=== PATIENT | male | born 1980 | race Caucasian/White ===

== ENCOUNTER 2024-07-07 10:54 | Emergency (ER) | payer MEDICAID, SELFPAY ==
[2024-07-07 11:10] VITALS: BP 113/73; PULSE 56; RESP 18; TEMP 36.4; O2SAT 95
--- NOTE | 2024-07-07 11:15 | XR_ITS ---
Examination: CT brain head without contrast. 2-D sagittal coronal reconstructions Date and time of exam:July 07, 2024 1229 hours INDICATIONS: Patient fell today with injury to the head, head pain facial bruising CTDI: vol (mGy):55.5 DLP: (mGycm):1122 Technique: Multiple CT axial sections of the brain have been obtained, 5 mm slice thickness. Contrast has not been administered. 2-D sagittal, coronal reconstructions have been obtained Low dose protocols were performed. One or more of the following dose reduction techniques were used; automated exposure control, adjustment of the mA and/or KV according to patient size, use of iterative reconstruction technique. Findings: No significant ventricular enlargement. Intra-axial or extra-axial hemorrhage density is not seen. No mass effect or midline shift Basal cisterns are not remarkable. Fourth ventricle is midline. Cranial vault intact. Impression: Negative for acute hemorrhage, mass effect or midline shift
--- NOTE | 2024-07-07 11:15 | XR_ITS ---
Examination: CTA chest with intravenous contrast 2-D reconstructions 3-D reconstructions, vascular Date and time of exam: July 07, 2024 1254 hours INDICATIONS: Patient fell today with into the chest, chest pain CTDI: vol (mGy) 15.2 DLP: (mGycm) 575 Technique: Multiple axial sections of the thorax have been obtained. 3 mm slice thickness, from below the hemidiaphragms to above the apices of the lungs. Mediastinal and lung density settings have been obtained. 2-D sagittal and coronal reconstructions. 3-D angiographic renderings, 3-D volume renderings, 3D post processing, vascular maximum intensity projections obtained. Contrast administered is 100 cc Isovue-370 intravenous. Low dose protocols were performed. One or more of the following dose reduction techniques were used; automated exposure control, adjustment of the mA and/or KV according to patient size, use of iterative reconstruction technique. Findings: Thoracic aorta pulmonary arteries intact No pulmonary artery emboli Mild hilar lymphadenopathy No hemopericardium 8mm plantar to the right upper lobe No pneumothorax pulmonary contusion or hemothorax The manubrium, the body of the sternum, thoracic vertebral body intact Ribs appear intact IMPRESSION: Thoracic aorta pulmonary arteries appear intact No hemopericardium, pneumothorax, pulmonary contusion or hemothorax Osseous structures appear intact
--- NOTE | 2024-07-07 11:15 | XR_ITS ---
Examination: CT abdomen with intravenous contrast CT pelvis with intravenous contrast 2-D coronal reconstructions 2-D sagittal reconstructions Date and time of exam:July 07, 2024 at 1247 hours INDICATIONS: Patient fell today with into the abdomen, abdomen and pelvic pain. CTDI: vol (mGy) 15.1 DLP: (mGycm) 1074 Technique: Multiple axial sections of the abdomen and pelvis have been obtained. 64 slice high-resolution scanner used. 3 mm axial sections have been obtained, post intravenous injection 100 cc Isovue-370 2-D sagittal, coronal reconstructions obtained. Low dose protocols were performed. One or more of the following dose reduction techniques were used; automated exposure control, adjustment of the mA and/or KV according to patient size, use of iterative reconstruction technique. Findings: No liver splenic or renal laceration, no perinephric hematoma No gallstones No pancreatic or adrenal mass Abdominal aorta intact No free blood in the abdomen Negative for pneumoperitoneum Normal appendix Scattered colonic diverticulosis Urinary bladder intact No prostatomegaly Hips bones of the pelvis sacral segments lumbar vertebral bodies appear intact IMPRESSION: No abdominal parenchymal laceration Abdominal aorta intact No free blood in the abdomen or pelvis
--- NOTE | 2024-07-07 11:15 | XR_ITS ---
Examination: CT lumbar spine, without contrast. 2-D sagittal reconstructions. 2-D coronal reconstructions. 3-D reconstructions. Date and time of exam:July 07, 2024 1224 hours INDICATIONS: Patient fell today with injury to the lower back, lower back pain CTDI: vol (mGy):47.2 DLP: (mGycm):1647 Technique: Multiple 1.25 mm axial sections of the lumbar spine without intravenous contrast have been obtained. 2-D sagittal and coronal reconstructions have been obtained. 3-D reconstructions have been obtained. Low dose protocols were performed. One or more of the following dose reduction techniques were used; automated exposure control, adjustment of the mA and/or KV according to patient size, use of iterative reconstruction technique. Findings: Adequate alignment lumbar vertebral bodies on the lateral view No lumbar vertebral body compression fracture No spondylolisthesis Mild disc narrowing posteriorly L5-S1 Lumbar pedicles, laminae, transverse and posterior spinous processes are intact Sacral segments appear intact L5-S1 3 mm central lumbar disc bulge L4-L5 3 mm left paracentral subarticular disc bulge L3-L4 no disc protrusion L2-L3 no disc protrusion L1-2 no disc protrusion IMPRESSION: No acute lumbar fracture
--- NOTE | 2024-07-07 11:15 | XR_ITS ---
Examination: CT thoracic spine, without contrast. 2-D sagittal reconstructions. 2-D coronal reconstructions. 3-D reconstructions. Date and time of exam:July 07, 2024 1240 hours INDICATIONS: Patient fell today with injury to the mid back, mid back pain CTDI: vol (mGy):49.6 DLP: (mGycm):1572 Technique: Multiple 1.25 mm axial sections of the thoracic spine without intravenous contrast have been obtained. 2-D sagittal and coronal reconstructions have been obtained. 3-D reconstructions have been obtained. Low dose protocols were performed. One or more of the following dose reduction techniques were used; automated exposure control, adjustment of the mA and/or KV according to patient size, use of iterative reconstruction technique. Findings: Adequate alignment thoracic vertebral bodies on the lateral view No thoracic vertebral body compression fracture Thoracic pedicles, laminae, transverse and posterior spinous processes appear intact No pneumothorax or hemothorax Soft tissue settings demonstrate no focal thoracic disc protrusion IMPRESSION: No acute thoracic fracture
--- NOTE | 2024-07-07 11:16 | EKG_ITS ---
[facility] Test Date: 2024-07-07 Pat Name: MITESH TOSCANO Department: Room: - Gender: Male Cr[employer]man: : 1980 Requested By: Santos Melton Order Number: [id number] Reading MD: Santos Melton Measurements Intervals Nursery Rate: 53 P: 11 MN: 139 QRS: 17 QRSD: 120 T: 14 QT: 434 QTc: 408 Interpretive Statements SINUS BRADYCARDIA MODERATE INTRAVENTRICULAR CONDUCTION DELAY [110+ ms QRS DURATION] Compared to ECG 04/20/2023 11:27:49 Intraventricular conduction delay now present Sinus rhythm no longer present /store/S0/[id number]/ecg/[id number].pdf
--- NOTE | 2024-07-07 11:16 | XR_ITS ---
Examination: CT maxillofacial, without intravenous contrast. 2-D sagittal reconstructions. 3-D reconstructions. Date and time of exam:July 07, 2024: 29 hours INDICATIONS: Patient fell today with injury to the face, facial bruising and pain CTDI: vol (mGy):40.4 DLP: (mGycm):782 Technique: Multiple axial images of maxillofacial region, 3.0 mm slice thickness. 2-D sagittal and coronal reconstructions. 3-D reconstructions. Low dose protocols were performed. One or more of the following dose reduction techniques were used; automated exposure control, adjustment of the mA and/or KV according to patient size, use of iterative reconstruction technique. Findings: Frontal bone frontal sinuses intact No nasal bone fracture Orbital rims appear intact Symmetrical optic globes with no retro-orbital contusion No depression zygomatic arches Pterygoid plates maxilla and the mandible intact IMPRESSION: No acute facial fracture.
--- NOTE | 2024-07-07 11:16 | XR_ITS ---
Examination: AP chest single view Technique one AP portable sitting chest single view Exam date and time: July 07, 2024 1121 hours Comparison April 24, 2023 INDICATIONS: Severe dizziness today, syncopal episodes x3, diarrhea FINDINGS: Normal heart size No aspiration pneumonia Tiny granuloma right lower lobe No pulmonary edema Mild osteopenia IMPRESSION: Negative for aspiration pneumonia
--- NOTE | 2024-07-07 11:16 | XR_ITS ---
Examination: CT cervical spine without contrast 2-D sagittal reconstructions 2-D coronal reconstructions 3-D reconstructions. Exam date and time:July 07, 2024 1229 hours INDICATIONS: Patient fell today with injury to the neck, neck pain CTDI:vol (mGy) 17.7 DLP: (mGycm) 430 Technique: Multiple 2 mm axial sections of the cervical spine have been obtained. The coronal and sagittal reconstructions have been obtained. 3-D reconstructions have been obtained. Low dose protocols were performed. One or more of the following dose reduction techniques were used; automated exposure control, adjustment of the mA and/or KV according to patient size, use of iterative reconstruction technique. Findings: Axial sections demonstrate intact base of the skull. C1 exhibit satisfactory relationship to the odontoid. No acute cervical vertebral body fracture seen. Alignment posterior spinous processes satisfactory. Impression: No acute cervical fracture.
--- NOTE | 2024-07-07 11:40 | EDNOTE_ITS ---
ED Syncope RME/HPI General Chief Complaint: Syncope / Near Syncope Stated Complaint: SYNCOPE X 3 STARTING 929, DIARRHEA; SEVERE DIZZI Time Seen by Provider: 07/07/24 11:03 Arrival date/time: 07/07/24 10:54 RME / HPI RME / HPI narrative: This section includes all my notes and documentations, including HPI, PE, and ED course. Santos Mckeon MD HPI: 43-year-old male here to be evaluated with passing out and falling. He reports 2-week history of multiple episodes of diarrhea. No rectal bleeding or tarry stools. No nausea or vomiting. He reports decreased oral intake. Just prior to arrival, he was taking a shower. Then he woke up on the bottom of the shower after apparently passing out and falling. noted 2 more episodes of passing out after the event. Currently, he reports no headache or dizziness. No neck pain or back pain. No chest pain or shortness of breath or abdominal pain. No pain in the limbs. No other complaints. ROS: All negative except as documented in HPI. Physical Exam: General: Alert and oriented. No acute distress. Orthostatic vitals noted. Eyes: Conjunctivae and lids clear. EOMI. PERRL. ENT: No nasal congestion. Pharynx normal. Tympanic membrane normal bilaterally. Neck: Supple. No carotid bruit. No JVD. Heart: RRR. Lungs: No respiratory distress. Good air movement. No rhonchi, wheezing, rales. Chest: No tenderness. Abdomen: Soft and nontender. Normal bowel sounds. No distension. No rebound or guarding. Back: No tenderness. Legs: No clubbing, cyanosis, edema. Skin: Warm and dry. Neuro: Alert and oriented X 3. Cranial Nerves II-XII grossly intact. No peripheral motor deficits. Musculoskeletal: All major joints and bones are not tender with no limited ROM. I reviewed all diagnostic test results. My interpretation of the EKG is sinus rhythm with no acute ST?T changes. My interpretation of the chest x-ray is no acute findings. My review of the CT scan reports is no acute findings. Blood tests unremarkable. At this point, diagnoses include syncope and falling from diarrhea causing dehydration and orthostatic hypotension. Treatment here included IV fluid. Significant improvement noted. Recommended supportive care and more outpatient workup. Based on my best medical judgment, made decision no further evaluation or treatment indicated at this time. Patient understands and agrees to the discharge instructions customized and printed, see below. Discharge Instructions from Dr. Mckeon: 1. After extensive evaluation, there is no life-threatening condition that caused you to pass out. Such as stroke or heart attack. And there is no very serious injury. Such as brain injury or broken neck or bump in back or other broken bone or internal organ injury. 2. From your 2 weeks of diarrhea, you are severely dehydrated which caused you to pass out. 3. Your job is to stay hydrated.? Zofran for nausea/vomiting.? Increase oral fluid and maintain clear urine.? If dark or yellow, increase oral fluid. 4. Do not take any medications to stop your diarrhea.? But try to replenish the fluid and electrolytes you are losing. 5. Some good choices are water (but not only water because it will cause electrolyte abnormalities), sports drinks like Gatorade (with less sugar content), coconut water, chicken stock, and other fluid with electrolytes (like Pedialyte). 6. See a private doctor on 07/08/2024 for recheck and further care. Ask to review all test results and official radiology reports, to make sure you receive all necessary follow-ups and monitoring. To make sure there is no serious intra-abdominal condition, ask for help with more investigation not available here in the ER. Such as EGD or scoping the stomach, colonoscopy or scoping the colon, and referral to see specifications writer. To make sure there is no serious underlying heart condition, ask to help you get more tests for your heart that cannot be done here in the ER. Such as Holter Monitor (cardiac monitoring at home from a day to even a month), heart stress test (on treadmill or with medication), echocardiogram (imaging of your heart structures), heart catherization (checking for blockages in your heart arteries), and a referral to see a Disability Insurance Claim Examiner. 7. Seek immediate medical care with worsening or with any concerns. Santos Mckeon MD Related Data Home Medications ?Medication ?Instructions ?Recorded ?Confirmed hydrochlorothiazide 50 mg tablet 50 mg PO QDAY 04/20/23 04/20/23 lisinopril 40 mg tablet 40 mg PO QDAY 04/20/23 04/20/23 Previous Rx's ?Medication ?Instructions ?Recorded albuterol sulfate 90 mcg/actuation 1 inh inhalation QID PRN shortness 04/24/23 aerosol inhaler of breath or wheezing #8.5 grams methylprednisolone 4 mg tablets in 4 mg PO QAM #21 tabs 04/24/23 a dose pack (Medrol (Sanjiv)) tiotropium bromide 1.25 2 puff inhalation QAM #4 grams 04/24/23 mcg/actuation mist for inhalation (Spiriva Respimat) ondansetron 4 mg disintegrating 4 mg PO TID PRN nausea and 07/07/24 tablet vomiting 5 days #10 tabs Allergies Allergy/AdvReac Type Severity Reaction Status Date / Time No Known Allergies Allergy Unverified 07/07/24 10:58 Course Quality Measures none Orders Category Date Time Status Bedside COVID-19 Antigen Test NOW Care 07/07/24 11:14 Active Bedside Influenza A&B Antigen Test NOW Care 07/07/24 11:[address] Screening NOW Care 07/07/24 11:15 Active EKG (ED ONLY) *Do not use* NOW Care 07/07/24 11:16 Completed Orthostatic Vitals NOW Care 07/07/24 11:16 Active Saline [Insert IV] NOW Care 07/07/24 11:14 Active Straight [In and Out Catheter] X1 Care 07/07/24 11:[address] abdomen pelvis w con Stat Exams 07/07/24 11:[address] angio chest Stat Exams 07/07/24 11:[address] cervical spine wo con Stat Exams 07/07/24 11:[address] facial bones wo con Stat Exams 07/07/24 11:[address] head/brain wo con Stat Exams 07/07/24 11:[address] lumbar spine wo con Stat Exams 07/07/24 11:[address] thoracic spine wo con Stat Exams 07/07/24 11:15 Completed EKG (ED Only) Stat Exams 07/07/24 11:16 Draft XR chest 1V portable Stat Exams 07/07/24 11:16 Completed Alcohol, Blood Medical Stat Lab 07/07/24 11:47 Completed BNP [B-Type Natriuretic Peptide] Stat Lab 07/07/24 11:47 Completed Beta Hydroxybutyrate Stat Lab 07/07/24 11:47 Completed CBC Stat Lab 07/07/24 11:47 Completed CK [Creatine Kinase] Stat Lab 07/07/24 11:47 Completed CMP [Comprehensive Metabolic Panel] Stat Lab 07/07/24 11:47 Completed D-Dimer Stat Lab 07/07/24 11:47 Completed Drug Screen,Urine Stat Lab 07/07/24 11:17 Ordered Magnesium Stat Lab 07/07/24 11:47 Completed TSH [Thyroid Stimulating Hormone] Stat Lab 07/07/24 11:47 Completed Troponin I Stat Lab 07/07/24 11:47 Completed UA, C/S IF [Urinalysis, C/S if Indicated] Stat Lab 07/07/24 11:17 Ordered Sodium Chloride 0.9% 1000 ml [Ns] 1,000 ml Med 07/07/24 11:16 Discontinued IV 999 mls/hr Sodium Chloride 0.9% 1000 ml [Ns] 1,000 ml Med 07/07/24 12:46 Discontinued IV 999 mls/hr Vital Signs Vital signs: Vital Signs Temperature 97.6 F 07/07/24 11:10 Pulse Rate 56 L 07/07/24 11:10 Respiratory Rate 18 07/07/24 11:10 Blood Pressure 113/73 07/07/24 11:10 Pulse Oximetry (%) 95 07/07/24 11:10 Oxygen Delivery Method Room Air 07/07/24 11:10 Syncope Patient data External records reviewed:: [facility] previous records Clinical information provided by:: patient Social determinants that could affect healthcare access:: none Patient has the following chronic illnesses:: Hypertension How is presenting disease/condition affected by chronic disease/condition?: uneffected by Evaluation data The following diagnostics were reviewed and interpreted by me:: lab results, radiology exam(s) and EKG tracing(s) (My interpretation of the EKG is: Sinus bradycardia (53 bpm) with nonspecific ST-T changes. Santos Mckeon MD) Lab and/or radiology exams considered but not ordered:: None Interpretation Summary: Dehydration orthostatic hypotension Medications / Prescriptions Medications or Prescriptions considered but not ordered:: None Medication administrations:: Medication Administration History Discontinued Medications Sodium Chloride (Ns) 1,000 mls @ 999 mls/hr IV .Q1H1M ONE Stop: 07/07/24 12:16 Last Infusion: 07/07/24 13:50 Dose: Infused Documented By: Admin: 07/07/24 11:45 Dose: 999 mls/hr Documented By: KEVEN Sodium Chloride (Ns) 1,000 mls @ 999 mls/hr IV .Q1H1M ONE Stop: 07/07/24 13:46 Last Admin: 07/07/24 13:51 Dose: 999 mls/hr Documented By: KEVEN IV fluid Consultations Consultation(s) initiated? (list below): No Diagnosis Syncope Differential Diagnosis: syncope due to orthostatic hypotension, vasovagal syncope, complete atrioventricular block, subarachnoid hemorrhage, pulmonary embolism and dehydration Most likely diagnosis given after review of the tests above:: Dehydration and orthostatic hypotension Admission Indicated Admission indicated?: not indicated Explain why admission is indicated or not indicated:: Admission criteria not met Admission Request Was there a request for admission?: No Disposition Plan Disposition Plan: Discharge Discharge Attestation Discharge Attestation: The patient and all family members were given an opportunity to ask questions and understood the discharge instructions. Discharge instructions specifically effects, indications for sooner follow up or return to the emergency department, and the expected course of current diagnosis. Patient condition: Stable Discharge Plan Plan Patient Disposition: HOME (Self Care) Prescriptions/Referrals Prescriptions/Med Rec: New ondansetron 4 mg tablet,disintegrating 4 mg PO TID PRN (Reason: nausea and vomiting) 5 Days Qty: 10 0RF No Action hydrochlorothiazide 50 mg tablet 50 mg PO QDAY Patient Comments: TAKE ONE TABLET BY MOUTH EVERY DAY lisinopril 40 mg tablet 40 mg PO QDAY Patient Comments: TAKE ONE TABLET BY MOUTH EVERY DAY FOR BLOOD PRESSURE Spiriva Respimat 1.25 mcg/actuation mist 2 puff inhalation QAM Qty: 4 2RF albuterol sulfate 90 mcg/actuation HFA aerosol inhaler 1 inh inhalation QID PRN (Reason: shortness of breath or wheezing) Qty: 8.5 2RF Rx Instructions: Rescue inhaler methylprednisolone [Medrol (Sanjiv)] 4 mg tablets,dose pack 4 mg PO QAM Qty: 21 0RF Rx Instructions: Medrol dose taper SANJIV Problem List Clinical Impression: Syncope due to orthostatic hypotension, Diarrhea Patient/Caregiver Discharge Instructions Discharge Activity: activity as tolerated Education Materials: ED Diarrhea, Unknown Cause, ED Hypotension, Orthostatic, ED Fainting, Uncertain Cause Additional Instructions: Discharge Instructions from Dr. Mckeon: 1. After extensive evaluation, there is no life-threatening condition that caused you to pass out. Such as stroke or heart attack. And there is no very serious injury. Such as brain injury or broken neck or bump in back or other broken bone or internal organ injury. 2. From your 2 weeks of diarrhea, you are severely dehydrated which caused you to pass out. 3. Your job is to stay hydrated.? Zofran for nausea/vomiting.? Increase oral f luid and maintain clear urine.? If dark or yellow, increase oral fluid. 4. Do not take any medications to stop your diarrhea.? But try to replenish the fluid and electrolytes you are losing. 5. Some good choices are water (but not only water because it will cause electrolyte abnormalities), sports drinks like Gatorade (with less sugar content), coconut water, chicken stock, and other fluid with electrolytes (like Pedialyte). 6. See a private doctor on 07/08/2024 for recheck and further care. Ask to review all test results and official radiology reports, to make sure you receive all necessary follow-ups and monitoring. To make sure there is no serious intra-abdominal condition, ask for help with more investigation not available here in the ER. Such as EGD or scoping the stomach, colonoscopy or scoping the colon, and referral to see specifications writer. To make sure there is no serious underlying heart condition, ask to help you get more tests for your heart that cannot be done here in the ER. Such as Holter Monitor (cardiac monitoring at home from a day to even a month), heart stress test (on treadmill or with medication), echocardiogram (imaging of your heart structures), heart catherization (checking for blockages in your heart arteries), and a referral to see a Disability Insurance Claim Examiner. 7. Seek immediate medical care with worsening or with any concerns. Print Language: Malaysian Stand Alone Forms: [employer] Award Info., Patient Portal Info Letter
[2024-07-07] MEDS: SODIUM CHLORIDE 0.9% 1000 ML 1,000 ML 999 ML IV ×2 (11:45→13:51)
[2024-07-07 11:52] VITALS: BMI 40.1
[2024-07-07 11:56] VITALS: BP 102/64; BP 114/61; BP 85/49; PULSE 48; PULSE 53; PULSE 61
[2024-07-07 11:58] LABS: Basophils # (Auto) 0.1 Thou/mm3 (0.0-0.2); Basophils % (Auto) 1 % (0-2.5); Eosinophils # (Auto) 0.1 Thou/mm3 (0.0-0.5); Eosinophils % (Auto) 1 % (0-10); Hematocrit 51.3 % (41.0-53.0); Hemoglobin 17.3 g/dL (13.5-16.0); Immature Granulocytes % (Auto) 0 % (0-0); Immature Granulocytes Auto 0.04 Thou/mm3 (0.00-0.00); Lymphocytes # (Auto) 1.3 Thou/mm3 (1.0-4.8); Lymphocytes % (Auto) 10 % (10-50); Mean Corpuscular HGB Conc 33.7 g/dl (31.0-37.0); Mean Corpuscular Volume 83 fL (80-100); Monocytes # (Auto) 0.5 Thou/mm3 (0.0-0.8); Monocytes % (Auto) 4 % (0-12); Neutrophils # (Auto) 10.2 Thou/mm3 (1.8-7.7); Neutrophils % (Auto) 84 % (37-80); Nucleated Red Blood Cell % 0 /100 WBC (0); Platelet Count 322 Thou/mm3 (140-440); RDW Standard Deviation 46.5 fL (35.1-43.9); Red Blood Count 6.18 Miln/mm3 (4.50-5.90); White Blood Count 12.1 Thou/mm3 (3.8-10.6)
[2024-07-07 12:02] LABS: Beta Hydroxybutyrate 0.6 mmol/L (<0.6)
[2024-07-07 12:22] LABS: B-Type Natriuretic Peptide < 20 pg/mL (0-100)
[2024-07-07 12:26] LABS: Alanine Aminotransferase 22 U/L (10-49); Albumin, Serum 4.9 gm/dL (3.5-5.0); Albumin/Globulin Ratio 1.7 (1.2-2.2); Alcohol, Blood Medical < 3.0 mg/dL (0-10.0); Alkaline Phosphatase 71 U/L (46-116); Anion Gap 7 (7-16); Aspartate Amino Transferase 26 U/L (0-34); BUN/Creatinine Ratio 10 Ratio (12-20); Bilirubin,Total 0.7 mg/dL (0.3-1.2); Blood Urea Nitrogen 12 mg/dL (9-23); Carbon Dioxide 30.3 mMol/L (20.0-31.0); Chloride 97 mMol/L (98-107); Creatine Kinase 151 U/L (34-171); Creatinine (Component) 1.2 mg/dL (0.6-1.3); D-Dimer 413 ng/mL (<600); Estimated Creatinine Clearance 111.4 mL/min (>60); Globulin 2.9 gm/dL (2.3-3.5); Glucose 163 mg/dL (74-106); Osmolality,Calculated 271 (275-295); Potassium 3.6 mMol/L (3.4-5.1); Sodium 134 mMol/L (136-145); Total Protein 7.8 gm/dL (5.7-8.2); Troponin I < 0.020 ng/mL (0.0-0.045); eGFR > 60 See Note
[2024-07-07 12:27] VITALS: BP 94/57; PULSE 54; RESP 15; TEMP 36.5; O2SAT 97
[2024-07-07 14:00] VITALS: BP 115/63; PULSE 61; RESP 16; TEMP 36.7; O2SAT 96
[2024-07-07 14:04] LABS: Collection Type, Urine Clean Catch; Squamous Epithelial Cell,Urine 0 /hpf (0-5)
[2024-07-07 14:16] LABS: Bilirubin,Urine Negative (Negative); Blood,Urine Negative (Negative); Clarity,Urine Clear (Clear/Hazy); Color,Urine Yellow (Lt Yel-Yel); Culture Indicated,Urine Not Indicated; Glucose, Urine Negative (Negative); Hyaline Casts,Urine < 1 /hpf (0-1); Ketones,Urine Negative (Negative); Leukocyte Esterase,Urine Negative (Negative); Nitrite,Urine Negative (Negative); PH,Urine 6.5 (5.0-7.0); Protein,Urine 1+ (Neg - Trace); RBC,Urine 6 /hpf (0-3); Specific Gravity,Urine 1.045 (1.001-1.035); Urobilinogen,Urine Negative mg/dL (0.0-1.0); WBC,Urine 4 /hpf (0-5)
[2024-07-07 14:23] LABS: Amphetamine/Methamp Scrn,U Negative (Negative); Barbiturate Screen,Urine Negative (Negative); Benzodiazepines Screen,Urine Negative (Negative); Benzoylecgonine Screen, Ur Negative (Negative); Fentanyl Screen,Urine Negative (Negative); Opiate Screen,Urine Negative (Negative); THC Screen,Urine Negative (Negative)
[2024-07-07 16:00] VITALS: BP 118/65; PULSE 90; RESP 16; TEMP 36.6; O2SAT 97
== END 2024-07-07 16:00 | disposition home or self-care (01) ==
PROVIDERS: Emergency Provider Emergency Medicine; PCP Nurse Practitioner
DX: I95.1 Orthostatic hypotension (principal); R19.7 Diarrhea, unspecified
CPT/HCPCS: 36415; 36600; 70450; 70486; 71045; 71275; 72125; 72128; 72131; 74177; 80053; 80307; 80320; 81001; 82010; 82550; 82803; 83735; 83880; 84443; 84484; 85025; 85379; 87400; 87811; 93005; 96360; 96361; 99285; A4649; J7030; Q9967; G0480